=== PATIENT | female | born 1965 | race Two or more races ===

== ENCOUNTER 2023-01-06 03:54 | Emergency (ER) | payer MEDICAID, OTHER ==
[~2023-01-06] VITALS: Ht 152.4 cm; Wt 65.0 kg
[2023-01-06 04:36] LABS: Urine Bacteria NONE SEEN /hpf (None Seen); Urine Blood Negative /uL (Negative); Urine Specific Gravity 1.004 (1.001-1.035); Urine WBC 1 /hpf (0 - 5)
[2023-01-06 04:44] LABS: Eosinophils # (auto) 0.2 10 ^3/uL (0-0.8); Hemoglobin 12.7 g/dL (12.2-16.2); Monocytes # (auto) 0.5 10 ^3/uL (0-1.3); Neutrophils % (auto) 66.1 % (37.0-80.0); Nucleated Red Blood Cells % 0.2 %; Red Blood Cells 5.91 10^6/uL (4.0-5.20)
[2023-01-06 04:46] LABS: Basophils # (auto) 0.1 10 ^3/uL (0-0.2); Basophils % (auto) 0.6 % (0.0-2.0); Eosinophils % (auto) 2.1 % (0.0-7.0); Hematocrit 39.9 % (36.0-46.0); Lymphocytes # (auto) 2.3 10 ^3/uL (0.4-5.4); Lymphocytes % (auto) 25.4 % (10.0-50.0); Mean Corpuscular Hemoglobin 21.5 pg (28.0-32.0); Mean Corpuscular Hgb Conc. 31.8 g/dL (32.0-36.0); Mean Corpuscular Volume 67.5 fL (80.0-100.0); Monocytes % (auto) 5.8 % (0.0-12.0); Neutrophils # (auto) 5.9 10 ^3/uL (1.6-8.6); Red Cell Distribution Width 16.1 % (11.8-14.3); White Blood Cell 8.9 10^3/uL (4.4-10.8)
[2023-01-06 05:00] LABS: Albumin 3.8 g/dL (3.4-5.0); Calcium 8.8 mg/dL (8.5-10.1); Potassium 4.2 mmol/L (3.5-5.1)
[2023-01-06 05:04] LABS: BUN/Creatinine Ratio 27.1 (10.0-20.0); Bilirubin, Total 0.5 mg/dL (0.2-1.0); Total Protein 7.1 g/dL (6.4-8.2)
[2023-01-06] MEDS ORDERED: PANT40TA2 PO (05:25)
[2023-01-06] MEDS ORDERED: MAALOX PLUS or MAALOX 30 ML PO ONE (05:30)
[2023-01-06] MEDS ORDERED: DONNATAL 5ml ORAL Elix (BELLADONNA ALK-PHENOBARB) PO ONE (05:30)
[2023-01-06] MEDS ORDERED: LIDOCAINE VISCOUS 2% 15ML UD PO ONE (05:30)
[2023-01-06 06:03] VITALS: BP 118/73
== END 2023-01-06 06:05 | disposition home or self-care (01) ==
LOC: ER 03:54
DX: K29.70 Gastritis, unspecified, without bleeding (principal); K21.9 Gastro-esophageal reflux disease without esophagitis; Z87.11 Personal history of peptic ulcer disease
CPT/HCPCS: 36415; 80053; 81001; 83690; 85025; 93005

== ENCOUNTER 2023-03-11 06:41 | Emergency (ER) | payer MEDICAID ==
[~2023-03-11] VITALS: Ht 147.3 cm; Wt 64.5 kg
[~2023-03-11 06:41] MED LIST: PANT40TA2 PO
[2023-03-11] MEDS ORDERED: NAP500T PO (07:57)
[2023-03-11 08:14] VITALS: BP 109/66; PULSE 68; RESP 19; O2SAT 66
== END 2023-03-11 08:19 | disposition home or self-care (01) ==
LOC: ER 06:41
DX: M26.601 Right temporomandibular joint disorder, unspecified (principal); K21.9 Gastro-esophageal reflux disease without esophagitis; Z88.0 Allergy status to penicillin; Z98.890 Other specified postprocedural states